=== PATIENT | female | born 1990 | race Asian ===

== ENCOUNTER 2019-10-02 10:38 | Emergency (ER) | payer OTHER, SELFPAY ==
[~2019-10-02] VITALS: Ht 170.2 cm; Wt 77.1 kg
[2019-10-02 10:41] VITALS: Ht 170.2 cm; Wt 77.1 kg
[2019-10-02 13:29] LABS: microscopic required? YES; urine erythrocyte NEGATIVE (NEGATIVE)
[2019-10-02 13:58] VITALS: BP 124/70
== END 2019-10-02 13:58 | disposition home or self-care (01) ==
LOC: ED 10:38
PROVIDERS: Emergency Medicine
DX: J45.909 Unspecified asthma, uncomplicated (principal); Z20.828 Contact with and (suspected) exposure to other viral communicable diseases
CPT/HCPCS: 87804; Q0092; U0003-CS